=== PATIENT | female | born 1935 | race Caucasian/White ===

== ENCOUNTER 2023-03-04 14:39 | Inpatient (IN) ==
[2023-03-04 15:10] LABS: ABS Basophils 0.1 10^3/uL (0.0-0.1); ABS Eosinophils 0.1 10^3/uL (0.0-0.5); ABS Lymphocytes 1.3 10^3/uL (1.0-4.8); ABS Monocytes 0.4 10^3/uL (0.0-0.9); ABS Neutrophils 5.9 10^3/uL (1.5-7.6); Eosinophil % 0.7 %; Hematocrit 34.3 % (35-45); Hemoglobin 11.5 g/dL (11.5-14.3); Lymphocyte % 17.1 %; Mean Corpuscular Hemoglobin 28.3 pg (27-33); Mean Corpuscular Hgb Conc 33.4 g/dL (31-36); Mean Corpuscular Volume 84.9 fL (80-97); Mean Platelet Volume 7.1 fL (7.5-11.2); Platelet Count 248 10^3/uL (150-450); Red Blood Count 4.04 10^6/uL (3.63-4.92); Red Cell Distribution Width 16.2 % (12-17); White Blood Count 7.8 10^3/uL (3.8-11.8)
[2023-03-04 15:24] LABS: INR 0.97 (0.88-1.18)
[2023-03-04 15:49] LABS: Albumin/Globulin Ratio 1.8 (1-3); Calcium 10.4 mg/dL (8.6-10.3); Creatinine, Serum 1.14 mg/dL (0.51-0.95); Globulin 2.2 g/dL (2-4); Potassium 4.4 mmol/L (3.5-5.0); Total Bilirubin 0.4 mg/dL (0.2-1.0); Total Protein 6.2 g/dL (6.4-8.9); eGFR CKD-EPI 46.3 (>60)
[2023-03-04] MEDS ORDERED: Iodixanol (CONTRAST) 320 MG/ML 100 ML SDV IV ONE (15:58)
[2023-03-04 16:48] LABS: High Sensitivity Troponin 1 Hr 240 pg/mL (<15)
[2023-03-04] MEDS ORDERED: Metoprolol Tartrate 5 mg VIAL 5 ml VIAL (1 mg/ml) IV ONE (17:09)
[2023-03-04] MEDS ORDERED: Metoprolol Tartrate 5 mg VIAL 5 ml VIAL (1 mg/ml) ONE (17:09)
[2023-03-04] MEDS ORDERED: Albuterol 2.5mg/3 ml (0.083%) NEB.SOLN INH PRN (17:29)
[2023-03-04] MEDS ORDERED: nitroGLYCERIN DRIP 25,000 MCG/250 ML BTL IV SCH (18:00)
[2023-03-04] MEDS ORDERED: Furosemide 20 mg/2 ml IV VIAL IV SLOW PU ONE (18:04)
[2023-03-04 18:26] LABS: Calcium (PTH Intact) 10.5 mg/dL (8.6-10.3)
[2023-03-04] MEDS: Enoxaparin 40 MG/0.4 ML SYR SUBCUT SCH (18:51)
[2023-03-04 18:52] LABS: T4, Total 8.1 mcg/dL (6.09-12.23)
[2023-03-04 18:57] LABS: TSH Ultra Thyroid Stim Horm 1.96 mcIU/mL (0.34-5.60)
[2023-03-04] MEDS ORDERED: niCARdipine 0.1MG/ML IVPREMIX 20 MG/200 ML BAG IV SCH (19:00)
[2023-03-04 19:31] LABS: Magnesium 2.2 mg/dL (1.9-2.7); Phosphorus 3.3 mg/dL (2.5-5.0)
[2023-03-05 06:19] LABS: ABS Eosinophils 0.1 10^3/uL (0.0-0.5); ABS Lymphocytes 1.4 10^3/uL (1.0-4.8); ABS Monocytes 0.6 10^3/uL (0.0-0.9); ABS Neutrophils 4.9 10^3/uL (1.5-7.6); Eosinophil % 1.4 %; Hematocrit 34.3 % (35-45); Hemoglobin 11.6 g/dL (11.5-14.3); Lymphocyte % 19.7 %; Mean Corpuscular Hemoglobin 28.6 pg (27-33); Mean Corpuscular Hgb Conc 33.9 g/dL (31-36); Mean Corpuscular Volume 84.3 fL (80-97); Mean Platelet Volume 7.3 fL (7.5-11.2); Platelet Count 233 10^3/uL (150-450); Red Blood Count 4.07 10^6/uL (3.63-4.92); Red Cell Distribution Width 15.8 % (12-17)
[2023-03-05 06:26] LABS: Urine Appearance Clear; Urine Bilirubin Negative (Negative); Urine Blood Negative (Negative); Urine Color Straw; Urine Glucose Negative (Negative); Urine Ketones Negative (Negative); Urine Nitrite Negative (Negative); Urine Protein 1+(30 mg/dL) (Negative); Urine Specific Gravity 1.017 (1.002-1.030); Urine Urobilinogen Negative (Negative)
[2023-03-05 06:43] LABS: Urine Bacteria Absent (Absent); Urine Red Blood Cell Absent (Absent); Urine Squamous Epithelial Cell Present (Absent); Urine White Blood Cell Trace(0-5/hpf) (Absent); Urine Yeast Present (Absent)
[2023-03-05 06:48] LABS: Albumin 3.9 g/dL (3.2-5.2); Creatinine, Serum 1.13 mg/dL (0.51-0.95); Magnesium 2.1 mg/dL (1.9-2.7); Potassium 3.6 mmol/L (3.5-5.0); Total Bilirubin 0.5 mg/dL (0.2-1.0); Total Protein 5.9 g/dL (6.4-8.9); eGFR CKD-EPI 46.8 (>60)
[2023-03-05] MEDS: Tiotropium Brom/Olodaterol MDI (ACUTE) INH SCH (08:16)
[2023-03-05] MEDS: Aspirin EC 81 mg TAB.EC (enteric coated) PO SCH (08:36)
[2023-03-05 09:34] LABS: HDL Cholesterol 50.3 mg/dL
[2023-03-05] MEDS: Enoxaparin 40 MG/0.4 ML SYR SUBCUT SCH (17:10)
[2023-03-06] MEDS: Ondansetron 4 mg VIAL 2 MG/ML 2 ml VIAL IV PRN ×3 (05:13→15:50)
[2023-03-06 05:14] LABS: ABS Eosinophils 0.1 10^3/uL (0.0-0.5); ABS Lymphocytes 1.3 10^3/uL (1.0-4.8); ABS Monocytes 0.5 10^3/uL (0.0-0.9); ABS Neutrophils 4.4 10^3/uL (1.5-7.6); Eosinophil % 1.9 %; Hematocrit 34.5 % (35-45); Hemoglobin 11.7 g/dL (11.5-14.3); Lymphocyte % 19.8 %; Mean Corpuscular Hemoglobin 28.1 pg (27-33); Mean Corpuscular Hgb Conc 33.9 g/dL (31-36); Mean Corpuscular Volume 82.9 fL (80-97); Mean Platelet Volume 7.2 fL (7.5-11.2); Platelet Count 239 10^3/uL (150-450); Red Blood Count 4.16 10^6/uL (3.63-4.92); Red Cell Distribution Width 15.7 % (12-17); White Blood Count 6.4 10^3/uL (3.8-11.8)
[2023-03-06 05:33] LABS: Calcium 9.5 mg/dL (8.6-10.3); Creatinine, Serum 1.33 mg/dL (0.51-0.95); Potassium 3.5 mmol/L (3.5-5.0); eGFR CKD-EPI 38.5 (>60)
[2023-03-06] MEDS: Tiotropium Brom/Olodaterol MDI (ACUTE) INH SCH (07:56)
[2023-03-06] MEDS: Calcium Carb (TUMS) 500 mg CHEW TAB PO PRN ×2 (09:45→18:26)
[2023-03-06] MEDS: Aspirin EC 81 mg TAB.EC (enteric coated) PO SCH (09:45)
[2023-03-06] MEDS ORDERED: Metoclopramide 5 MG/ML VIAL (10 mg) IV SLOW PU ONE (15:48)
[2023-03-06] MEDS: Enoxaparin 40 MG/0.4 ML SYR SUBCUT SCH (18:26)
[2023-03-07] MEDS: Tiotropium Brom/Olodaterol MDI (ACUTE) INH SCH (07:01)
[2023-03-07] MEDS: Aspirin EC 81 mg TAB.EC (enteric coated) PO SCH (08:11)
[2023-03-07 08:35] LABS: ABS Basophils 0.1 10^3/uL (0.0-0.1); ABS Eosinophils 0.1 10^3/uL (0.0-0.5); ABS Lymphocytes 1.6 10^3/uL (1.0-4.8); ABS Monocytes 0.5 10^3/uL (0.0-0.9); ABS Neutrophils 6.9 10^3/uL (1.5-7.6); Eosinophil % 1.5 %; Hematocrit 36.7 % (35-45); Hemoglobin 12.2 g/dL (11.5-14.3); Lymphocyte % 17.3 %; Mean Corpuscular Hemoglobin 28.3 pg (27-33); Mean Corpuscular Hgb Conc 33.4 g/dL (31-36); Mean Corpuscular Volume 84.7 fL (80-97); Mean Platelet Volume 7.4 fL (7.5-11.2); Platelet Count 293 10^3/uL (150-450); Red Blood Count 4.33 10^6/uL (3.63-4.92); Red Cell Distribution Width 15.7 % (12-17); White Blood Count 9.2 10^3/uL (3.8-11.8)
[2023-03-07 08:51] LABS: Calcium 9.4 mg/dL (8.6-10.3); Potassium 3.7 mmol/L (3.5-5.0); eGFR CKD-EPI 23.6 (>60)
[2023-03-07] MEDS ORDERED: NS 0.9% 250 ml 250 ML IV SCH (11:00)
[2023-03-07] MEDS ORDERED: Enoxaparin 30 MG/0.3 ML SYR SUBCUT SCH (18:00)
[2023-03-08 06:03] VITALS: BP 138/67
[2023-03-08 06:49] LABS: ABS Eosinophils 0.1 10^3/uL (0.0-0.5); ABS Lymphocytes 1.3 10^3/uL (1.0-4.8); ABS Monocytes 0.7 10^3/uL (0.0-0.9); ABS Neutrophils 5.1 10^3/uL (1.5-7.6); Eosinophil % 0.9 %; Hematocrit 33.8 % (35-45); Hemoglobin 11.3 g/dL (11.5-14.3); Lymphocyte % 18.5 %; Mean Corpuscular Hemoglobin 28.8 pg (27-33); Mean Corpuscular Hgb Conc 33.5 g/dL (31-36); Mean Corpuscular Volume 85.9 fL (80-97); Mean Platelet Volume 7.3 fL (7.5-11.2); Platelet Count 229 10^3/uL (150-450); Red Blood Count 3.94 10^6/uL (3.63-4.92); Red Cell Distribution Width 15.5 % (12-17); White Blood Count 7.3 10^3/uL (3.8-11.8)
[2023-03-08 06:54] LABS: Calcium 8.6 mg/dL (8.6-10.3); Creatinine, Serum 1.7 mg/dL (0.51-0.95); Potassium 3.6 mmol/L (3.5-5.0); eGFR CKD-EPI 28.7 (>60)
[2023-03-08] MEDS: Tiotropium Brom/Olodaterol MDI (ACUTE) INH SCH (07:15)
[2023-03-08] MEDS: Aspirin EC 81 mg TAB.EC (enteric coated) PO SCH (09:26)
== END 2023-03-08 10:15 | DRG 305 ==
LOC: ED 14:39 → EDHOLD 17:26 → SUATTDRO 17:26 → MEDTELE 19:02 → ICU 19:09 → MEDTELE 03-06 17:55
PROVIDERS: ADMIT Internal Medicine; ATTEND Internal Medicine

== ENCOUNTER 2023-07-03 14:29 | Inpatient (IN) ==
[2023-07-03] MEDS ORDERED: Lactated Ringers 1000 ml BAG 1,000 ML IV ONE (15:10)
[2023-07-03] MEDS ORDERED: Iodixanol (CONTRAST) 320 MG/ML 100 ML SDV IV ONE (15:19)
[2023-07-03 15:28] LABS: ABS Lymphocytes 1.5 10^3/uL (1.0-4.8); ABS Monocytes 0.4 10^3/uL (0.0-0.9); ABS Neutrophils 4.2 10^3/uL (1.5-7.6); ABS Nucleated RBC 0.01 10^3/ul; Eosinophil % 0.8 %; Hematocrit 35.7 % (35-45); Lymphocyte % 24.5 %; Mean Corpuscular Hgb Conc 33.7 g/dL (31-36); Mean Corpuscular Volume 86.1 fL (80-97); Mean Platelet Volume 7.5 fL (7.5-11.2); Nucleated Red Blood Cells % 0.2 /100 WBC (0.0-0.4); Platelet Count 240 10^3/uL (150-450); Red Blood Count 4.15 10^6/uL (3.63-4.92); Red Cell Distribution Width 15.1 % (12-17); White Blood Count 6.2 10^3/uL (3.8-11.8)
[2023-07-03] MEDS ORDERED: niCARdipine 0.1MG/ML IVPREMIX 20 MG/200 ML BAG IV ONE (15:36)
[2023-07-03 15:37] LABS: Activated Partial Thrombo Time 29.2 seconds (26.0-38.0); INR 0.92 (0.83-1.13)
[2023-07-03] MEDS ORDERED: TENECTEPLASE 50 MG VIAL KIT 5 MG/ML (reconstituted) IV ONE ×2 (15:37)
[2023-07-03 15:44] LABS: Albumin 4.1 g/dL (3.2-5.2); Anion Gap 5 mmol/L (2-16); CO2 Carbon Dioxide 31 mmol/L (22-32); Calcium 10.7 mg/dL (8.6-10.3); Chloride 107 mmol/L (101-111); Sodium 143 mmol/L (135-145)
[2023-07-03 15:51] LABS: ALT 17 U/L (7-52); AST 16 U/L (13-39); Albumin/Globulin Ratio 1.6 (1-3); Alkaline Phosphatase 78 U/L (35-149); Blood Urea Nitrogen 21 mg/dL (6-24); Cholesterol 272 mg/dL; Creatinine, Serum 1.14 mg/dL (0.51-0.95); Globulin 2.5 g/dL (2-4); Glucose 103 mg/dL (70-100); HDL Cholesterol 67.9 mg/dL; LDL Cholesterol 161 mg/dL; Total Protein 6.6 g/dL (6.4-8.9); Triglycerides 214 mg/dL; eGFR CKD-EPI 46.3 (>60)
[2023-07-03] MEDS ORDERED: niCARdipine 0.1MG/ML IVPREMIX 20 MG/200 ML BAG IV SCH (16:00)
[2023-07-03] MEDS ORDERED: Albuterol/Ipratropium NEB.SOL (2.5/0.5 MG) 3 ML NEB.SOLN INH ONE (20:43)
[2023-07-03] MEDS ORDERED: methylPREDNISolone SOD SUCC 125 mg 2 ML VIAL IV ONE (20:43)
[2023-07-03] MEDS: Enoxaparin 40 MG/0.4 ML SYR SUBCUT SCH (22:12)
[2023-07-03] MEDS: niCARdipine 0.1MG/ML IVPREMIX 20 MG/200 ML BAG IV SCH (23:34)
[2023-07-04] MEDS: Calcium Carb (TUMS) 500 mg CHEW TAB PO ONE ×3 (01:10→02:08)
[2023-07-04] MEDS ORDERED: Calcium Carb (TUMS) 500 mg CHEW TAB ONE ×2 (01:45→02:04)
[2023-07-04] MEDS ORDERED: Calcium Carb (TUMS) 500 mg CHEW TAB PO ONE ×2 (01:45→14:12)
[2023-07-04] MEDS ORDERED: Albuterol HFA INHALER 8 gm MDI INH PRN (02:01)
[2023-07-04] MEDS: niCARdipine 0.1MG/ML IVPREMIX 20 MG/200 ML BAG IV SCH ×3 (02:18→08:48)
[2023-07-04 04:58] LABS: ABS Lymphocytes 0.8 10^3/uL (1.0-4.8); ABS Neutrophils 5.4 10^3/uL (1.5-7.6); Hematocrit 34.8 % (35-45); Hemoglobin 11.8 g/dL (11.5-14.3); Lymphocyte % 13.4 %; Mean Corpuscular Hemoglobin 29.2 pg (27-33); Mean Corpuscular Hgb Conc 33.9 g/dL (31-36); Mean Corpuscular Volume 86.1 fL (80-97); Mean Platelet Volume 7.7 fL (7.5-11.2); Platelet Count 251 10^3/uL (150-450); Red Blood Count 4.04 10^6/uL (3.63-4.92); Red Cell Distribution Width 15.3 % (12-17); White Blood Count 6.3 10^3/uL (3.8-11.8)
[2023-07-04 05:12] LABS: High Sensitivity Troponin 1 Hr 73 pg/mL (<15)
[2023-07-04 05:13] LABS: Calcium 10.3 mg/dL (8.6-10.3); Creatinine, Serum 1.18 mg/dL (0.51-0.95); Magnesium 2.1 mg/dL (1.9-2.7); Potassium 4.1 mmol/L (3.5-5.0); eGFR CKD-EPI 44.4 (>60)
[2023-07-04 05:45] LABS: TSH Ultra Thyroid Stim Horm 1.36 mcIU/mL (0.34-5.60)
[2023-07-04] MEDS: Aspirin EC 81 mg TAB.EC (enteric coated) PO SCH (09:06)
[2023-07-04] MEDS: Cholecalciferol (VIT D3) 1,000 unit TAB PO SCH (09:06)
[2023-07-04] MEDS: Tiotropium Brom/Olodaterol MDI (ACUTE) INH SCH (10:18)
[2023-07-04] MEDS ORDERED: niCARdipine 0.1MG/ML IVPREMIX 20 MG/200 ML BAG IV SCH (10:37)
[2023-07-04] MEDS ORDERED: Albuterol 2.5mg/3 ml (0.083%) NEB.SOLN INH PRN (11:31)
[2023-07-04] MEDS ORDERED: Calcium Carb (TUMS) 500 mg CHEW TAB PO PRN (18:27)
[2023-07-04] MEDS: Enoxaparin 40 MG/0.4 ML SYR SUBCUT SCH (21:01)
[2023-07-05 06:38] LABS: ABS Lymphocytes 1.4 10^3/uL (1.0-4.8); ABS Monocytes 0.5 10^3/uL (0.0-0.9); ABS Neutrophils 7.1 10^3/uL (1.5-7.6); Eosinophil % 0.1 %; Hematocrit 31.5 % (35-45); Hemoglobin 10.7 g/dL (11.5-14.3); Lymphocyte % 15.7 %; Mean Corpuscular Hemoglobin 29.2 pg (27-33); Mean Corpuscular Volume 85.9 fL (80-97); Mean Platelet Volume 7.3 fL (7.5-11.2); Platelet Count 229 10^3/uL (150-450); Red Blood Count 3.67 10^6/uL (3.63-4.92); Red Cell Distribution Width 14.9 % (12-17)
[2023-07-05 06:50] LABS: Calcium 10.1 mg/dL (8.6-10.3); Creatinine, Serum 1.17 mg/dL (0.51-0.95); Potassium 4.1 mmol/L (3.5-5.0); eGFR CKD-EPI 44.9 (>60)
[2023-07-05] MEDS: Tiotropium Brom/Olodaterol MDI (ACUTE) INH SCH (08:04)
[2023-07-05] MEDS: Aspirin EC 81 mg TAB.EC (enteric coated) PO SCH (08:24)
[2023-07-05] MEDS: Cholecalciferol (VIT D3) 1,000 unit TAB PO SCH (08:24)
[2023-07-05 12:15] VITALS: BP 132/67
== END 2023-07-05 13:40 | disposition home or self-care (01) | DRG 305 ==
LOC: ED 14:29 → EDHOLD 20:44 → ICU 20:58
PROVIDERS: ADMIT Student in an Organized Health Care Education/Training Program; ATTEND Student in an Organized Health Care Education/Training Program

== ENCOUNTER 2023-08-28 18:04 | Inpatient (IN) ==
[2023-08-28] MEDS ORDERED: hydrALAZINE 20 mg/ml 1 ML Vial IV IV SLOW PU ONE (18:43)
[2023-08-28 18:52] LABS: ABS Basophils 0.1 10^3/uL (0.0-0.1); ABS Eosinophils 0.1 10^3/uL (0.0-0.5); ABS Lymphocytes 1.5 10^3/uL (1.0-4.8); ABS Monocytes 0.5 10^3/uL (0.0-0.9); ABS Neutrophils 5.1 10^3/uL (1.5-7.6); ABS Nucleated RBC 0.01 10^3/ul; Eosinophil % 0.9 %; Hematocrit 35.8 % (35-45); Hemoglobin 11.9 g/dL (11.5-14.3); Lymphocyte % 21.1 %; Mean Corpuscular Hemoglobin 28.9 pg (27-33); Mean Corpuscular Hgb Conc 33.4 g/dL (31-36); Mean Corpuscular Volume 86.5 fL (80-97); Mean Platelet Volume 7.4 fL (7.5-11.2); Nucleated Red Blood Cells % 0.1 %/100WBC (0.0-0.8); Platelet Count 266 10^3/uL (150-450); Red Blood Count 4.14 10^6/uL (3.63-4.92); Red Cell Distribution Width 14.9 % (12-17); White Blood Count 7.3 10^3/uL (3.8-11.8)
[2023-08-28 19:07] LABS: INR 0.95 (0.83-1.13)
[2023-08-28 19:18] LABS: Albumin 4.2 g/dL (3.2-5.2); Albumin/Globulin Ratio 1.5 (1-3); Calcium 10.7 mg/dL (8.6-10.3); Creatinine, Serum 1.11 mg/dL (0.51-0.95); Globulin 2.8 g/dL (2-4); Magnesium 2.2 mg/dL (1.9-2.7); Total Bilirubin 0.5 mg/dL (0.2-1.0); eGFR CKD-EPI 47.8 (>60)
[2023-08-28] MEDS: niCARdipine 0.1MG/ML IVPREMIX 20 MG/200 ML BAG IV SCH (20:28)
[2023-08-28 20:55] LABS: Urine Appearance Clear; Urine Bilirubin Negative (Negative); Urine Blood Negative (Negative); Urine Color Yellow; Urine Glucose Negative (Negative); Urine Ketones Negative (Negative); Urine Nitrite Negative (Negative); Urine Protein 3+(>=500 mg/dL) (Negative); Urine Specific Gravity 1.013 (1.002-1.030); Urine Urobilinogen Negative (Negative)
[2023-08-28 21:02] LABS: Urine Bacteria Absent (Absent); Urine Red Blood Cell Trace(0-2/hpf) (Absent); Urine Squamous Epithelial Cell Present (Absent); Urine White Blood Cell Trace(0-5/hpf) (Absent)
[2023-08-28 21:22] LABS: High Sensitivity Troponin 1 Hr 43 pg/mL (<15)
[2023-08-28] MEDS ORDERED: Albuterol HFA INHALER 8 gm MDI INH PRN (22:17)
[2023-08-29] MEDS: niCARdipine 0.1MG/ML IVPREMIX 20 MG/200 ML BAG IV SCH ×4 (00:15→20:01)
[2023-08-29] MEDS: Enoxaparin 40 MG/0.4 ML SYR SUBCUT SCH ×2 (00:17→19:18)
[2023-08-29 05:20] LABS: ABS Basophils 0.1 10^3/uL (0.0-0.1); ABS Eosinophils 0.1 10^3/uL (0.0-0.5); ABS Lymphocytes 1.7 10^3/uL (1.0-4.8); ABS Monocytes 0.5 10^3/uL (0.0-0.9); ABS Nucleated RBC 0.01 10^3/ul; Eosinophil % 1.3 %; Hemoglobin 11.3 g/dL (11.5-14.3); Lymphocyte % 26.1 %; Mean Corpuscular Hemoglobin 28.7 pg (27-33); Mean Corpuscular Hgb Conc 33.2 g/dL (31-36); Mean Corpuscular Volume 86.5 fL (80-97); Mean Platelet Volume 7.4 fL (7.5-11.2); Nucleated Red Blood Cells % 0.1 %/100WBC (0.0-0.8); Platelet Count 234 10^3/uL (150-450); Red Blood Count 3.93 10^6/uL (3.63-4.92); Red Cell Distribution Width 15.1 % (12-17); White Blood Count 6.3 10^3/uL (3.8-11.8)
[2023-08-29 05:40] LABS: Albumin 3.7 g/dL (3.2-5.2); Albumin/Globulin Ratio 1.5 (1-3); Creatinine, Serum 0.98 mg/dL (0.51-0.95); Globulin 2.4 g/dL (2-4); Potassium 3.5 mmol/L (3.5-5.0); Total Bilirubin 0.5 mg/dL (0.2-1.0); Total Protein 6.1 g/dL (6.4-8.9); eGFR CKD-EPI 55.5 (>60)
[2023-08-29] MEDS: Aspirin EC 81 mg TAB.EC (enteric coated) PO SCH (08:12)
[2023-08-29] MEDS: FLUTICAS/UMECLI/VILANT 100-62.5-25 MDI (NF) INH SCH ×2 (09:12→20:29)
[2023-08-30 04:41] LABS: ABS Eosinophils 0.1 10^3/uL (0.0-0.5); ABS Lymphocytes 1.5 10^3/uL (1.0-4.8); ABS Monocytes 0.4 10^3/uL (0.0-0.9); ABS Neutrophils 3.5 10^3/uL (1.5-7.6); ABS Nucleated RBC 0.01 10^3/ul; Hemoglobin 11.5 g/dL (11.5-14.3); Lymphocyte % 27.5 %; Mean Corpuscular Hemoglobin 29.1 pg (27-33); Mean Corpuscular Hgb Conc 33.8 g/dL (31-36); Mean Corpuscular Volume 86.1 fL (80-97); Mean Platelet Volume 7.4 fL (7.5-11.2); Nucleated Red Blood Cells % 0.1 %/100WBC (0.0-0.8); Platelet Count 237 10^3/uL (150-450); Red Blood Count 3.95 10^6/uL (3.63-4.92); Red Cell Distribution Width 15.1 % (12-17); White Blood Count 5.6 10^3/uL (3.8-11.8)
[2023-08-30 04:59] LABS: Albumin 3.7 g/dL (3.2-5.2); Albumin/Globulin Ratio 1.5 (1-3); Creatinine, Serum 1.19 mg/dL (0.51-0.95); Globulin 2.4 g/dL (2-4); Magnesium 2.1 mg/dL (1.9-2.7); Potassium 3.9 mmol/L (3.5-5.0); Total Bilirubin 0.4 mg/dL (0.2-1.0); Total Protein 6.1 g/dL (6.4-8.9)
[2023-08-30] MEDS: FLUTICAS/UMECLI/VILANT 100-62.5-25 MDI (NF) INH SCH ×2 (07:00→19:49)
[2023-08-30] MEDS: Aspirin EC 81 mg TAB.EC (enteric coated) PO SCH (08:54)
[2023-08-30] MEDS: Enoxaparin 40 MG/0.4 ML SYR SUBCUT SCH (20:39)
[2023-08-31 05:56] LABS: ABS Eosinophils 0.1 10^3/uL (0.0-0.5); ABS Lymphocytes 1.5 10^3/uL (1.0-4.8); ABS Monocytes 0.4 10^3/uL (0.0-0.9); ABS Neutrophils 3.3 10^3/uL (1.5-7.6); Eosinophil % 1.8 %; Hematocrit 35.2 % (35-45); Hemoglobin 11.8 g/dL (11.5-14.3); Lymphocyte % 27.8 %; Mean Corpuscular Hemoglobin 28.8 pg (27-33); Mean Corpuscular Hgb Conc 33.3 g/dL (31-36); Mean Corpuscular Volume 86.5 fL (80-97); Mean Platelet Volume 7.2 fL (7.5-11.2); Nucleated Red Blood Cells % 0.1 %/100WBC (0.0-0.8); Platelet Count 220 10^3/uL (150-450); Red Blood Count 4.07 10^6/uL (3.63-4.92); Red Cell Distribution Width 15.1 % (12-17); White Blood Count 5.2 10^3/uL (3.8-11.8)
[2023-08-31 06:18] LABS: Albumin 3.6 g/dL (3.2-5.2); Albumin/Globulin Ratio 1.5 (1-3); Calcium 10.3 mg/dL (8.6-10.3); Creatinine, Serum 1.03 mg/dL (0.51-0.95); Globulin 2.4 g/dL (2-4); Magnesium 2.1 mg/dL (1.9-2.7); Potassium 3.9 mmol/L (3.5-5.0); Total Bilirubin 0.4 mg/dL (0.2-1.0); eGFR CKD-EPI 52.3 (>60)
[2023-08-31] MEDS: FLUTICAS/UMECLI/VILANT 100-62.5-25 MDI (NF) INH SCH (07:25)
[2023-08-31] MEDS: Aspirin EC 81 mg TAB.EC (enteric coated) PO SCH (08:53)
[2023-08-31] MEDS ORDERED: Furosemide 40 mg/4 ml IV VIAL IV ONE (09:46)
[2023-08-31 10:08] VITALS: BP 134/61
[2023-08-31] MEDS ORDERED: Calcium Carb (TUMS) 500 mg CHEW TAB PO ONE (11:11)
[2023-08-31] MEDS ORDERED: Calcium Carb (TUMS) 500 mg CHEW TAB ONE (11:13)
== END 2023-08-31 12:45 | disposition home or self-care (01) | DRG 305 ==
LOC: ED 18:04 → EDHOLD 20:57 → ICU 21:45
PROVIDERS: ADMIT Student in an Organized Health Care Education/Training Program; ATTEND Student in an Organized Health Care Education/Training Program

== ENCOUNTER 2023-09-27 15:48 | Inpatient (IN) ==
[2023-09-27] MEDS ORDERED: Albuterol 2.5mg/3 ml (0.083%) NEB.SOLN INH ONE (16:00)
[2023-09-27 16:16] LABS: ABS Eosinophils 0.1 10^3/uL (0.0-0.5); ABS Lymphocytes 1.4 10^3/uL (1.0-4.8); ABS Monocytes 0.4 10^3/uL (0.0-0.9); ABS Neutrophils 4.2 10^3/uL (1.5-7.6); Eosinophil % 1.1 %; Hematocrit 33.1 % (35-45); Hemoglobin 11.2 g/dL (11.5-14.3); Lymphocyte % 22.9 %; Mean Corpuscular Hemoglobin 29.4 pg (27-33); Mean Corpuscular Hgb Conc 33.8 g/dL (31-36); Mean Platelet Volume 7.4 fL (7.5-11.2); Platelet Count 239 10^3/uL (150-450); Red Blood Count 3.81 10^6/uL (3.63-4.92); White Blood Count 6.2 10^3/uL (3.8-11.8)
[2023-09-27 16:44] LABS: Albumin 3.8 g/dL (3.2-5.2); Albumin/Globulin Ratio 1.7 (1-3); Calcium 9.4 mg/dL (8.6-10.3); Creatinine, Serum 1.24 mg/dL (0.51-0.95); Globulin 2.2 g/dL (2-4); Potassium 3.7 mmol/L (3.5-5.0); Total Bilirubin 0.2 mg/dL (0.2-1.0); eGFR CKD-EPI 41.9 (>60)
[2023-09-27 17:44] LABS: High Sensitivity Troponin 1 Hr 24 pg/mL (<15)
[2023-09-27] MEDS ORDERED: nitroGLYCERIN DRIP 25,000 MCG/250 ML BTL IV SCH (18:00)
[2023-09-27] MEDS: niCARdipine 0.1MG/ML IVPREMIX 20 MG/200 ML BAG IV SCH (21:52)
[2023-09-28] MEDS: niCARdipine 0.1MG/ML IVPREMIX 20 MG/200 ML BAG IV SCH ×2 (01:36→18:36)
[2023-09-28 06:23] LABS: Calcium 9.5 mg/dL (8.6-10.3); Creatinine, Serum 1.13 mg/dL (0.51-0.95); Magnesium 2.1 mg/dL (1.9-2.7); Potassium 4.2 mmol/L (3.5-5.0); eGFR CKD-EPI 46.8 (>60)
[2023-09-28 07:48] LABS: ABS Lymphocytes 1.1 10^3/uL (1.0-4.8); ABS Monocytes 0.1 10^3/uL (0.0-0.9); ABS Neutrophils 8.1 10^3/uL (1.5-7.6); Hematocrit 32.7 % (35-45); Lymphocyte % 11.8 %; Mean Corpuscular Hemoglobin 29.3 pg (27-33); Mean Corpuscular Hgb Conc 33.7 g/dL (31-36); Mean Corpuscular Volume 86.9 fL (80-97); Platelet Count 222 10^3/uL (150-450); Red Blood Count 3.76 10^6/uL (3.63-4.92); Red Cell Distribution Width 14.7 % (12-17); White Blood Count 9.3 10^3/uL (3.8-11.8)
[2023-09-28] MEDS: Enoxaparin 40 MG/0.4 ML SYR SUBCUT SCH (09:19)
[2023-09-28] MEDS: Aspirin EC 81 mg TAB.EC (enteric coated) PO SCH (09:20)
[2023-09-28] MEDS: Cholecalciferol (VIT D3) 1,000 unit TAB PO SCH (09:20)
[2023-09-28] MEDS: Albuterol 2.5mg/3 ml (0.083%) NEB.SOLN INH SCH ×3 (10:02→19:34)
[2023-09-28] MEDS: Calcium Carb (TUMS) 500 mg CHEW TAB PO SCH (19:17)
[2023-09-29] MEDS: Albuterol 2.5mg/3 ml (0.083%) NEB.SOLN INH SCH ×2 (01:43→07:19)
[2023-09-29 04:21] LABS: Calcium 9.5 mg/dL (8.6-10.3); Creatinine, Serum 1.19 mg/dL (0.51-0.95); Potassium 3.4 mmol/L (3.5-5.0)
[2023-09-29 04:56] LABS: ABS Eosinophils 0.1 10^3/uL (0.0-0.5); ABS Lymphocytes 1.9 10^3/uL (1.0-4.8); ABS Monocytes 0.5 10^3/uL (0.0-0.9); ABS Neutrophils 5.1 10^3/uL (1.5-7.6); Eosinophil % 1.2 %; Hemoglobin 10.6 g/dL (11.5-14.3); Lymphocyte % 24.7 %; Mean Corpuscular Hemoglobin 29.6 pg (27-33); Mean Corpuscular Hgb Conc 34.3 g/dL (31-36); Mean Corpuscular Volume 86.4 fL (80-97); Mean Platelet Volume 7.6 fL (7.5-11.2); Platelet Count 231 10^3/uL (150-450); Red Blood Count 3.58 10^6/uL (3.63-4.92); Red Cell Distribution Width 14.9 % (12-17); White Blood Count 7.5 10^3/uL (3.8-11.8)
[2023-09-29] MEDS ORDERED: Albuterol 2.5mg/3 ml (0.083%) NEB.SOLN INH PRN (07:23)
[2023-09-29] MEDS ORDERED: Furosemide 40 mg/4 ml IV VIAL IV SLOW PU ONE (08:22)
[2023-09-29] MEDS ORDERED: Pneumococcal Vac 23-Polyvalent IM ONE (09:00)
[2023-09-29] MEDS: Aspirin EC 81 mg TAB.EC (enteric coated) PO SCH (09:05)
[2023-09-29] MEDS: Enoxaparin 40 MG/0.4 ML SYR SUBCUT SCH (09:05)
[2023-09-29] MEDS: Calcium Carb (TUMS) 500 mg CHEW TAB PO SCH ×2 (09:06→20:25)
[2023-09-29] MEDS: Cholecalciferol (VIT D3) 1,000 unit TAB PO SCH (09:06)
[2023-09-29] MEDS ORDERED: Potassium Chlor 20 meq TAB.ER PO ONE (10:07)
[2023-09-29] MEDS: FLUTICAS/UMECLI/VILANT 100-62.5-25 MDI (NF) INH SCH (10:37)
[2023-09-29] MEDS ORDERED: Furosemide 40 mg/4 ml IV VIAL IV ONE (15:00)
[2023-09-29 17:38] LABS: Calcium 10.7 mg/dL (8.6-10.3); Creatinine, Serum 1.56 mg/dL (0.51-0.95); Potassium 4.1 mmol/L (3.5-5.0); eGFR CKD-EPI 31.8 (>60)
[2023-09-30 06:57] LABS: ABS Eosinophils 0.1 10^3/uL (0.0-0.5); ABS Lymphocytes 2.1 10^3/uL (1.0-4.8); ABS Monocytes 0.6 10^3/uL (0.0-0.9); ABS Neutrophils 4.2 10^3/uL (1.5-7.6); Eosinophil % 1.6 %; Hematocrit 35.3 % (35-45); Hemoglobin 11.5 g/dL (11.5-14.3); Lymphocyte % 29.9 %; Mean Corpuscular Hemoglobin 28.5 pg (27-33); Mean Corpuscular Hgb Conc 32.7 g/dL (31-36); Mean Corpuscular Volume 87.2 fL (80-97); Mean Platelet Volume 7.5 fL (7.5-11.2); Platelet Count 240 10^3/uL (150-450); Red Blood Count 4.05 10^6/uL (3.63-4.92); Red Cell Distribution Width 14.9 % (12-17)
[2023-09-30 08:23] LABS: Calcium 10.2 mg/dL (8.6-10.3); Creatinine, Serum 1.61 mg/dL (0.51-0.95); Magnesium 2.2 mg/dL (1.9-2.7); Potassium 3.7 mmol/L (3.5-5.0); eGFR CKD-EPI 30.6 (>60)
[2023-09-30] MEDS ORDERED: Potassium Chloride LIQUID 20 MEQ/15 ML LIQUID PO ONE (08:49)
[2023-09-30] MEDS ORDERED: Magnesium Hydroxide LIQ 30 ML UDC PO PRN (09:33)
[2023-09-30] MEDS: FLUTICAS/UMECLI/VILANT 100-62.5-25 MDI (NF) INH SCH (09:34)
[2023-09-30] MEDS: Cholecalciferol (VIT D3) 1,000 unit TAB PO SCH (09:48)
[2023-09-30] MEDS: Aspirin EC 81 mg TAB.EC (enteric coated) PO SCH (09:48)
[2023-09-30] MEDS: Calcium Carb (TUMS) 500 mg CHEW TAB PO SCH ×2 (09:48→20:11)
[2023-09-30] MEDS: Enoxaparin 40 MG/0.4 ML SYR SUBCUT SCH (09:52)
[2023-09-30] MEDS: Magnesium Hydroxide LIQ 30 ML UDC PO SCH ×2 (09:56→20:14)
[2023-09-30] MEDS: Polyethylene Glycol 3350 17 GM PACKET PO SCH (12:36)
[2023-09-30] MEDS: Senna TAB 8.6 mg TAB PO SCH (20:14)
[2023-10-01 06:56] LABS: ABS Basophils 0.1 10^3/uL (0.0-0.1); ABS Eosinophils 0.1 10^3/uL (0.0-0.5); ABS Monocytes 0.5 10^3/uL (0.0-0.9); ABS Neutrophils 4.4 10^3/uL (1.5-7.6); Eosinophil % 1.4 %; Hematocrit 35.8 % (35-45); Hemoglobin 11.9 g/dL (11.5-14.3); Lymphocyte % 27.9 %; Mean Corpuscular Hemoglobin 28.9 pg (27-33); Mean Corpuscular Hgb Conc 33.2 g/dL (31-36); Mean Platelet Volume 7.6 fL (7.5-11.2); Nucleated Red Blood Cells % 0.1 %/100WBC (0.0-0.8); Platelet Count 226 10^3/uL (150-450); Red Blood Count 4.12 10^6/uL (3.63-4.92); Red Cell Distribution Width 14.6 % (12-17)
[2023-10-01 07:10] LABS: Creatinine, Serum 1.71 mg/dL (0.51-0.95); Magnesium 2.7 mg/dL (1.9-2.7); Potassium 4.1 mmol/L (3.5-5.0); eGFR CKD-EPI 28.5 (>60)
[2023-10-01] MEDS: FLUTICAS/UMECLI/VILANT 100-62.5-25 MDI (NF) INH SCH (07:26)
[2023-10-01] MEDS: Calcium Carb (TUMS) 500 mg CHEW TAB PO SCH ×2 (09:12→21:45)
[2023-10-01] MEDS: Cholecalciferol (VIT D3) 1,000 unit TAB PO SCH (09:12)
[2023-10-01] MEDS: Aspirin EC 81 mg TAB.EC (enteric coated) PO SCH (09:12)
[2023-10-01] MEDS: Magnesium Hydroxide LIQ 30 ML UDC PO SCH ×2 (09:13→21:51)
[2023-10-01] MEDS: Enoxaparin 40 MG/0.4 ML SYR SUBCUT SCH (09:13)
[2023-10-01] MEDS: Polyethylene Glycol 3350 17 GM PACKET PO SCH (09:13)
[2023-10-01] MEDS ORDERED: NS 0.9% 250 ml 250 ML IV ONE (10:53)
[2023-10-01 16:49] LABS: Urine Appearance Clear; Urine Bilirubin Negative (Negative); Urine Blood Negative (Negative); Urine Color Straw; Urine Glucose Negative (Negative); Urine Ketones Negative (Negative); Urine Nitrite Negative (Negative); Urine Protein Negative (Negative); Urine Specific Gravity 1.009 (1.002-1.030); Urine Urobilinogen Negative (Negative)
[2023-10-01] MEDS: Senna TAB 8.6 mg TAB PO SCH (21:51)
[2023-10-02 05:50] LABS: ABS Eosinophils 0.1 10^3/uL (0.0-0.5); ABS Lymphocytes 1.8 10^3/uL (1.0-4.8); ABS Monocytes 0.5 10^3/uL (0.0-0.9); ABS Neutrophils 4.2 10^3/uL (1.5-7.6); Eosinophil % 1.6 %; Hemoglobin 11.3 g/dL (11.5-14.3); Lymphocyte % 26.8 %; Mean Corpuscular Hemoglobin 28.8 pg (27-33); Mean Corpuscular Hgb Conc 33.3 g/dL (31-36); Mean Corpuscular Volume 86.5 fL (80-97); Mean Platelet Volume 7.7 fL (7.5-11.2); Platelet Count 206 10^3/uL (150-450); Red Blood Count 3.93 10^6/uL (3.63-4.92); Red Cell Distribution Width 14.9 % (12-17); White Blood Count 6.6 10^3/uL (3.8-11.8)
[2023-10-02 07:26] LABS: Calcium 10.4 mg/dL (8.6-10.3); Creatinine, Serum 1.55 mg/dL (0.51-0.95); Magnesium 2.8 mg/dL (1.9-2.7)
[2023-10-02] MEDS: FLUTICAS/UMECLI/VILANT 100-62.5-25 MDI (NF) INH SCH (08:12)
[2023-10-02] MEDS: Cholecalciferol (VIT D3) 1,000 unit TAB PO SCH (08:36)
[2023-10-02] MEDS: Calcium Carb (TUMS) 500 mg CHEW TAB PO SCH ×2 (08:36→19:41)
[2023-10-02] MEDS: Aspirin EC 81 mg TAB.EC (enteric coated) PO SCH (08:36)
[2023-10-02] MEDS: Magnesium Hydroxide LIQ 30 ML UDC PO SCH ×3 (08:37→21:11)
[2023-10-02] MEDS: Enoxaparin 30 MG/0.3 ML SYR SUBCUT SCH (08:37)
[2023-10-02] MEDS: Polyethylene Glycol 3350 17 GM PACKET PO SCH (08:37)
[2023-10-02] MEDS: Senna TAB 8.6 mg TAB PO SCH (21:11)
[2023-10-03] MEDS: FLUTICAS/UMECLI/VILANT 100-62.5-25 MDI (NF) INH SCH (07:41)
[2023-10-03] MEDS: Polyethylene Glycol 3350 17 GM PACKET PO SCH (09:22)
[2023-10-03] MEDS: Aspirin EC 81 mg TAB.EC (enteric coated) PO SCH (09:22)
[2023-10-03] MEDS: Calcium Carb (TUMS) 500 mg CHEW TAB PO SCH (09:23)
[2023-10-03] MEDS: Cholecalciferol (VIT D3) 1,000 unit TAB PO SCH (09:23)
[2023-10-03] MEDS: Enoxaparin 30 MG/0.3 ML SYR SUBCUT SCH (09:23)
[2023-10-03] MEDS: Magnesium Hydroxide LIQ 30 ML UDC PO SCH (09:24)
[2023-10-03 13:40] VITALS: BP 132/79
== END 2023-10-03 14:41 | DRG 305 ==
LOC: ED 15:48 → SUATTDRO 21:43 → EDHOLD 21:43 → ICU 09-28 12:31 → MED 09-28 12:46
PROVIDERS: ADMIT Internal Medicine Pulmonary Disease; ATTEND Internal Medicine

== ENCOUNTER 2024-10-03 14:08 | Inpatient (IN) ==
[2024-10-03] MEDS: Albuterol/Ipratropium NEB.SOL (2.5/0.5 MG) 3 ML NEB.SOLN INH ONE (14:33)
[2024-10-03 15:07] LABS: ABS Basophils 0.1 10^3/uL (0.0-0.1); ABS Eosinophils 0.1 10^3/uL (0.0-0.5); ABS Lymphocytes 1.1 10^3/uL (1.0-4.8); ABS Monocytes 0.7 10^3/uL (0.0-0.9); ABS Neutrophils 6.3 10^3/uL (1.5-7.6); Eosinophil % 0.9 %; Hematocrit 33.2 % (35-45); Hemoglobin 11.2 g/dL (11.5-14.3); Lymphocyte % 13.8 %; Mean Corpuscular Hgb Conc 33.7 g/dL (31-36); Mean Corpuscular Volume 86.1 fL (80-97); Mean Platelet Volume 7.2 fL (7.5-11.2); Platelet Count 273 10^3/uL (150-450); Red Blood Count 3.86 10^6/uL (3.63-4.92); White Blood Count 8.3 10^3/uL (3.8-11.8)
[2024-10-03 15:45] LABS: Albumin 4.1 g/dL (3.5-5.7); Albumin/Globulin Ratio 1.9 (1-3); Calcium 10.3 mg/dL (8.6-10.3); Creatinine, Serum 1.44 mg/dL (0.51-0.95); Globulin 2.2 g/dL (2-4); Magnesium 2.3 mg/dL (1.9-2.7); Potassium 4.4 mmol/L (3.5-5.0); Total Bilirubin 0.5 mg/dL (0.2-1.0); Total Protein 6.3 g/dL (6.4-8.9); eGFR CKD-EPI 34.8 (>60)
[2024-10-03 16:30] LABS: High Sensitivity Troponin 1 Hr 28 pg/mL (<15)
[2024-10-03 16:33] LABS: Urine Appearance Clear; Urine Bilirubin Negative (Negative); Urine Blood Negative (Negative); Urine Color Colorless; Urine Glucose 3+ (>=300 mg/dL) (Negative); Urine Ketones Negative (Negative); Urine Nitrite Negative (Negative); Urine Protein Negative (Negative); Urine Specific Gravity 1.008 (1.002-1.030); Urine Urobilinogen Negative (Negative)
[2024-10-03] MEDS: Enoxaparin 40 MG/0.4 ML SYR SUBCUT SCH (19:23)
[2024-10-03] MEDS: cefTRIAXone 1 gm/50 mL D5W 1 GM/50 ML BAG IV SCH (19:24)
[2024-10-03] MEDS: Albuterol/Ipratropium NEB.SOL (2.5/0.5 MG) 3 ML NEB.SOLN INH SCH (19:24)
[2024-10-03] MEDS: Azithromycin 500 mg/250 ml NS 500 MG/250 ML BAG IVPB SCH (20:25)
[2024-10-04 05:29] LABS: ABS Basophils 0.1 10^3/uL (0.0-0.1); ABS Eosinophils 0.1 10^3/uL (0.0-0.5); ABS Lymphocytes 1.3 10^3/uL (1.0-4.8); ABS Monocytes 0.6 10^3/uL (0.0-0.9); Hematocrit 30.9 % (35-45); Hemoglobin 10.1 g/dL (11.5-14.3); Lymphocyte % 18.1 %; Mean Corpuscular Hemoglobin 28.2 pg (27-33); Mean Corpuscular Hgb Conc 32.8 g/dL (31-36); Mean Corpuscular Volume 85.9 fL (80-97); Mean Platelet Volume 7.1 fL (7.5-11.2); Platelet Count 240 10^3/uL (150-450); Red Blood Count 3.59 10^6/uL (3.63-4.92); Red Cell Distribution Width 15.5 % (12-17)
[2024-10-04 06:12] LABS: Calcium 9.6 mg/dL (8.6-10.3); Creatinine, Serum 1.68 mg/dL (0.51-0.95); Magnesium 2.3 mg/dL (1.9-2.7); eGFR CKD-EPI 28.9 (>60)
[2024-10-04] MEDS: CMC:FLUTICAS/UMECLI/VILANT 100-62.5-25 MDI (NF) INH SCH (07:19)
[2024-10-04] MEDS: Aspirin EC 81 mg TAB.EC (enteric coated) PO SCH (08:25)
[2024-10-04] MEDS: Albuterol/Ipratropium NEB.SOL (2.5/0.5 MG) 3 ML NEB.SOLN INH SCH (12:59)
[2024-10-04] MEDS: cefTRIAXone 1 gm/50 mL D5W 1 GM/50 ML BAG IV SCH (20:17)
[2024-10-04] MEDS: Azithromycin 500 mg/250 ml NS 500 MG/250 ML BAG IVPB SCH (21:48)
[2024-10-05] MEDS ORDERED: Albuterol/Ipratropium NEB.SOL (2.5/0.5 MG) 3 ML NEB.SOLN INH PRN (00:04)
[2024-10-05 09:22] LABS: Calcium 9.6 mg/dL (8.6-10.3); Creatinine, Serum 1.47 mg/dL (0.51-0.95); eGFR CKD-EPI 33.9 (>60)
[2024-10-05] MEDS: Albuterol/Ipratropium NEB.SOL (2.5/0.5 MG) 3 ML NEB.SOLN INH SCH (16:15)
[2024-10-06 13:36] VITALS: BP 142/74
== END 2024-10-06 16:55 | disposition home or self-care (01) | DRG 190 ==
LOC: EDHOLD 14:08 → ED 14:08 → SUATTDRO 18:10 → MED 20:43
PROVIDERS: ADMIT Internal Medicine; ATTEND Internal Medicine